=== PATIENT | male | born 1975 | race Hispanic/Latino ===

== ENCOUNTER 2017-08-25 02:59 | Emergency (ER) | payer MEDICAID ==
[2017-08-25 02:59] VITALS: BMI 21.2
--- NOTE | 2017-08-25 03:49 | C.PDOC ---
History Of Present Illness pt states that he wants detox from alcohol and heroin. Pt was told that there are no detox beds available and was given the phone numbers and contact numbers for the detox centers in the area. Pt denies any suicidal or homicidal ideation Time Seen by Provider: 08/25/17 03:46 Chief Complaint (Nursing): Substance Abuse History Per: Patient History/Exam Limitations: no limitations Onset/Duration Of Symptoms: Days Current Symptoms Are (Timing): Still Present Suicide/Self Injury Attempted (Context): None Modifying Factor(s): Alcohol Severity: None Associated Symptoms: Anger. denies: Depression Involuntary Hold By: None Recent travel outside of the [place]: No Additional History Per: Patient Past Medical History Reviewed: Historical Data, Nursing Documentation, Vital Signs Vital Signs: Last Vital Signs Temp 98.4 F 08/25/17 03:14 Pulse 107 H 08/25/17 03:14 Resp 20 08/25/17 03:14 BP 115/84 08/25/17 03:14 Pulse Ox 100 08/25/17 03:52 - Medical History PMH: Anxiety, Arthritis, Back Problems (chronic pain, s/p fall in 2010), Bipolar Disorder, Depression, Seizures (2 in his lifetime) Denies: Diabetes, Hepatitis, HIV, HTN, Hyperthyroidism, Hypothyroidism, Chronic Kidney Disease, Sexually Transmitted Disease - [facility] Procedures GROUP PSYCHOTHERAPY (07/22/16) INDIVIDUAL PSYCHOTHERAPY, COGNITIVE-BEHAVIORAL (05/31/16) MEDICATION MANAGEMENT (08/20/16) Family History: States: Diabetes (paternal), Hypertension (paternal) - Social History Hx Alcohol Use: Yes Hx Substance Use: Yes - Immunization History Hx Tetanus Toxoid Vaccination: No Hx Influenza Vaccination: No Hx Pneumococcal Vaccination: No Review Of Systems Constitutional: Negative for: Fever Cardiovascular: Negative for: Chest Pain Respiratory: Negative for: Shortness of Breath Gastrointestinal: Negative for: Abdominal Pain Genitourinary: Negative for: Dysuria Musculoskeletal: Negative for: Back Pain Skin: Negative for: Rash Neurological: Negative for: Weakness Psych: Negative for: Suicidal ideation Physical Exam - Physical Exam Appears: Non-toxic Skin: Warm, Dry Neck: Supple Chest: Symmetrical Cardiovascular: Rhythm Regular Respiratory: No Rales Gastrointestinal/Abdominal: Soft, No Tenderness Extremity: Bilateral: Atraumatic Gait: Steady ED Course And Treatment O2 Sat by Pulse Oximetry: 100 Pulse Ox Interpretation: Normal Reevaluation Time: 05:13 Reassessment Condition: Improved Disposition Counseled Patient/Family Regarding: Studies Performed, Diagnosis, Need For Followup - Disposition Referrals: [facility] [Outside] Disposition: HOME/ ROUTINE Disposition Time: 03:47 Condition: FAIR Instructions: Alcohol Abuse and Alcoholism (DC) Forms: [employer] (Welsh) - Clinical Impression Clinical Impression: Alcohol abuse, Polysubstance abuse
[2017-08-25 05:32] VITALS: TEMP 98.5
[2017-08-25 06:07] LABS: SQUAMOUS EPITHIAL < 1 /hpf (0-5); URINE BILIRUBIN NEGATIVE (NEGATIVE); URINE BLOOD 1+ (NEGATIVE); URINE CLARITY Clear (Clear); URINE COLOR Yellow (YELLOW); URINE GLUCOSE (UA) NORMAL (Normal); URINE LEUKOCYTE ESTERASE NEG Leu/uL (Negative); URINE PROTEIN NEGATIVE (NEGATIVE); URINE UROBILINOGEN NORMAL mg/dL (0.2-1.0)
[2017-08-25 06:20] LABS: BARBITURATES, UR NEGATIVE (NEGATIVE); BENZODIAZEPINES, UR NEGATIVE (NEGATIVE); OPIATES, UR NEGATIVE (NEGATIVE); PHENCYCLIDINE, UR NEGATIVE (NEGATIVE)
[2017-08-25 06:22] LABS: BASO % 0.4 % (0.0-2.0); EOS # 0.1 K/uL (0.0-0.7); EOS % 0.8 % (0.0-4.0); HEMOGLOBIN 13.3 g/dL (12.0-18.0); LYMPH # 2.3 K/uL (1.0-4.3); LYMPH % 21.5 % (20.0-40.0); MEAN CORPUSCULAR HEMOGLOBIN 27.7 pg (27.0-31.0); MEAN CORPUSCULAR HGB CONC 34.2 g/dL (33.0-37.0); MONO # 0.4 K/uL (0.0-0.8); MONO % 3.8 % (0.0-10.0); NEUT # 7.9 K/uL (1.8-7.0); NEUT % 73.5 % (50.0-75.0); RBC 4.81 Mil/uL (4.40-5.90); RED CELL DISTRIBUTION WIDTH 14.8 % (11.5-14.5); WHITE BLOOD COUNT 10.8 K/uL (4.8-10.8)
[2017-08-25 06:38] LABS: ALB/GLOB RATIO 1.4 (1.0-2.1); ALBUMIN 4.4 g/dL (3.5-5.0); ALT/SGPT 16 U/L (21-72); AST/SGOT 19 U/L (17-59); BLOOD UREA NITROGEN 11 mg/dL (9-20); CALCIUM 8.8 mg/dl (8.6-10.4); GFR AFRICAN-AMERICAN > 60; GFR NON-AFRICAN AMERICAN > 60
[2017-08-25 07:40] VITALS: BP 126/76; PULSE 109; RESP 18; O2SAT 98
== END 2017-08-25 08:05 | disposition home or self-care (01) ==
LOC: C.ER 02:59
DX: F10.10 Alcohol abuse, uncomplicated (principal); F19.10 Other psychoactive substance abuse, uncomplicated; Y90.1 Blood alcohol level of 20-39 mg/100 ml

== ENCOUNTER 2017-10-16 12:49 | Inpatient (IN) | payer MEDICAID ==
[2017-10-16 12:49] VITALS: BMI 21.2
[2017-10-16 13:32] LABS: BASO % 0.2 % (0.0-2.0); HEMOGLOBIN 14.7 g/dL (12.0-18.0); LYMPH # 1.5 K/uL (1.0-4.3); LYMPH % 8.3 % (20.0-40.0); MEAN CELL VOLUME 79.7 fL (80.0-94.0); MEAN CORPUSCULAR HEMOGLOBIN 27.7 pg (27.0-31.0); MEAN CORPUSCULAR HGB CONC 34.8 g/dL (33.0-37.0); MEAN PLATELET VOLUME 7.8 fL (7.2-11.7); MONO # 0.8 K/uL (0.0-0.8); MONO % 4.5 % (0.0-10.0); NEUT # 15.8 K/uL (1.8-7.0); PLATELET COUNT 379 K/uL (130-400); RBC 5.32 Mil/uL (4.40-5.90); RED CELL DISTRIBUTION WIDTH 15.5 % (11.5-14.5)
[2017-10-16 13:33] LABS: WHITE BLOOD COUNT 18.2 K/uL (4.8-10.8)
[2017-10-16 13:38] LABS: SQUAMOUS EPITHIAL < 1 /hpf (0-5); URINE BILIRUBIN NEGATIVE (NEGATIVE); URINE BLOOD NEGATIVE (NEGATIVE); URINE CLARITY Hazy (Clear); URINE COLOR Amber (YELLOW); URINE GLUCOSE (UA) NORMAL (Normal); URINE LEUKOCYTE ESTERASE NEG Leu/uL (Negative); URINE PROTEIN 1+ mg/dL (NEGATIVE)
[2017-10-16 13:50] LABS: BANDS 1 % (0-2); LYMPHOCYTE 10 % (20-40); MONOCYTE 6 % (0-10); NEUTROPHIL 83 % (50-75); TOTAL CELLS COUNTED 100
[2017-10-16 13:51] LABS: ANISOCYTOSIS SLIGHT; PLATELET ESTIMATE NORMAL (NORMAL)
[2017-10-16 13:52] LABS: ALB/GLOB RATIO 1.2 (1.0-2.1); ALBUMIN 4.7 g/dL (3.5-5.0); ALT/SGPT 26 U/L (21-72); AST/SGOT 28 U/L (17-59); BARBITURATES, UR NEGATIVE (NEGATIVE); BLOOD UREA NITROGEN 18 mg/dL (9-20); GFR AFRICAN-AMERICAN > 60; GFR NON-AFRICAN AMERICAN > 60; OPIATES, UR NEGATIVE (NEGATIVE); PHENCYCLIDINE, UR NEGATIVE (NEGATIVE)
[2017-10-16 14:15] LABS: BENZODIAZEPINES, UR POSITIVE (NEGATIVE)
--- NOTE | 2017-10-16 14:43 | C.PDOC ---
History Of Present Illness 42-year-old male, PMHx includes psychiatric illness and alcohol abuse, presents to the emergency department with complaints of suicidal ideation since last night. Patient was recently in an inpatient psychiatric unit at [facility]. No other complaints at this time. Time Seen by Provider: 10/16/17 13:17 Chief Complaint (Nursing): Psychiatric Evaluation History Per: Patient History/Exam Limitations: no limitations Past Medical History Reviewed: Historical Data, Nursing Documentation, Vital Signs Vital Signs: Last Vital Signs Temp 98.7 F 10/16/17 15:04 Pulse 106 H 10/16/17 15:04 Resp 18 10/16/17 15:04 BP 124/76 10/16/17 15:04 Pulse Ox 97 10/16/17 15:04 - Medical History PMH: Anxiety, Arthritis, Back Problems (chronic pain, s/p fall in 2010), Bipolar Disorder, Depression, Seizures (2 in his lifetime) - [facility] Procedures GROUP PSYCHOTHERAPY (07/22/16) INDIVIDUAL PSYCHOTHERAPY, COGNITIVE-BEHAVIORAL (05/31/16) MEDICATION MANAGEMENT (08/20/16) Family History: States: Diabetes (paternal), Hypertension (paternal) - Social History Hx Alcohol Use: Yes Hx Substance Use: Yes - Immunization History Hx Tetanus Toxoid Vaccination: No Hx Influenza Vaccination: No Hx Pneumococcal Vaccination: No Review Of Systems Constitutional: Negative for: Fever Cardiovascular: Negative for: Chest Pain Respiratory: Negative for: Shortness of Breath Gastrointestinal: Negative for: Vomiting, Abdominal Pain Neurological: Negative for: Headache Psych: Positive for: Suicidal ideation. Negative for: Withdrawal Physical Exam - Physical Exam Appears: Non-toxic, No Acute Distress, Other (appearing) Skin: Normal Color, Warm, Dry, No Rash Head: Atraumatic, Normacephalic Eye(s): bilateral: Other (dilated pupils) Nose: Normal Oral Mucosa: Moist Lips: Normal Appearing Neck: Normal ROM Cardiovascular: Rhythm Regular, No Murmur Respiratory: Normal Breath Sounds, No Accessory Muscle Use Gastrointestinal/Abdominal: Soft, No Tenderness Extremity: Normal ROM, No Deformity, No Swelling Neurological/Psych: Oriented x3, Normal Speech ED Course And Treatment - Laboratory Results Result Diagrams: 10/16/17 13:20 10/16/17 13:20 Lab Interpretation: Abnormal (benzo +) O2 Sat by Pulse Oximetry: 99 (RA) Pulse Ox Interpretation: Normal Reevaluation Time: 14:44 Reassessment Condition: Improved Medical Decision Making Medical Decision Making: bipolar, alcohol abuse Disposition Doctor Will See Patient In The: Hospital Counseled Patient/Family Regarding: Studies Performed, Diagnosis - Disposition Disposition: HOSPITALIZED Disposition Time: 14:44 Condition: GOOD - Clinical Impression Clinical Impression: Bipolar disorder, Alcohol abuse - Scribe Statement The provider has reviewed the documentation as recorded by the Scribe (Louis Howell) All medical record entries made by the Scribe were at my direction and personally dictated by me. I have reviewed the chart and agree that the record accurately reflects my personal performance of the history, physical exam, medical decision making, and the department course for this patient. I have also personally directed, reviewed, and agree with the discharge instructions and disposition.
[2017-10-16 16:16] VITALS: O2SAT 99
--- NOTE | 2017-10-16 16:25 | PCM.BM ---
<BlayneBelkys - Last Filed: 10/16/17 16:24> Treatment assets and liabiliti Patient Assests: cooperative, ADL independent, negotiates basic needs, cognitively intact Patient Liabilities: live alone - Milieu Protocol Maintain good personal hygiene: daily Encourage regular showers, daily Remind patient to perform daily oral care, daily Assist patient to perform ADL's Maintain personal safety: every shift Educate patient to report safety concerns to staff, every shift Monitor environment for contraband/sharps Medication safety: Monitor for expected outcome, potential side effects: every shift, Assess barriers to learning: every shift, Assess readiness for medication education: every shift <Lexx Lin - Last Filed: 10/19/17 11:39> - Diagnosis (1) Bipolar disorder Status: Acute Interventions: 10/19/17 11:39 * Assess/adjust medications daily and /or as needed * See patient on an individual basis 7x/week to assess level of manic behaviors and stability * Discuss risks, benefits, side effects and alternatives of medications * <Haley Diop - Last Filed: 10/19/17 16:36> Family Contact Family involvement: Patient does not wish Family/SO involvement Family contact: Patient declines to allow family contact at present - Goals for Treatment Patient goals for treatment: "I want to go to a rehab program." Discharge/Continuing Care - Education Needs Education Needs: Patient Medication, Patient Diagnosis/Disease Process, Patient Coping Skills - Discharge Discharge Criteria: Free of Suicidal thoughts, Normal sleep pattern, Ability to care for self, No longer exhibiting s/s of withdrawal, Reduction of target symptoms Discharge to:: Substance Abuse Rehab, Other - Treatment Team Participation Discussed with Family/SO: No Was Patient/Family/SO present at Treatment Team Meeting: Yes
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
[2017-10-17] MEDS: Divalproex 500 mg DR Tab PO SCH (17:11)
[2017-10-18] MEDS: Divalproex 500 mg DR Tab PO SCH ×2 (09:36→17:17)
--- NOTE | 2017-10-18 16:03 | PCM.PYCHPN ---
Psychiatric Progress Note - Psychiatric Progress Note Patient seen today, length of contact: 16 min Patient Chief Complaint: feeling down Problems Identified/Issues Discussed: Patient seen and evaluated, chart reviewed and discussed with the nurse. Patient reports irritability and agitation. He remained isolated and withdrawn. He reports depressed mood and poor sleep and racing thoughts. However he denies any auditory or visual hallucinations. He is taking medications and denies any side effects Symptoms are improving but he needs more time for stabilization. Supportive therapy and psychoeducation were given. Medication Change: Yes Medical Record Reviewed: Yes Mental Status Examination - Cognitive Function Orientation: Person, Place, Situation, Time Memory: Intact Attention: WNL Concentration: Poor Association: WNL Fund of Knowledge: Poor - Mood Mood: Depressed, Anxious - Affect Affect: Constricted, Depressed - Speech Speech: Soft - Formal Thought Process Formal Thought Process: No Impairment - Suicidal Ideation Suicidal Ideation: No - Homicidal Ideation Homicidal Ideation: No Goal/Treatment Plan - Goal/Treatment Plan Need for Continued Stay: Severe depression anxiety, Severe functional impairment Progress Toward Problem(s) and Goals/Treatment Plan: Bipolar depressed severe without psychotic features CBT Psychoeducation Supportive therapy, group therapy, individual therapy Depakote 500 mg by mouth twice a day Trazodone 50 mg by mouth daily at bedtime Seroquel 100 mg PO QHS Gabapentin 100 mg po TID Buspar 10 mg PO BID Alcohol use disorder severe CBT Psychoeducation Supportive therapy, individual therapy Use [place] for abstinence ativan 1 mg by mouth every 6 hours prn - Smoking Cessation Smoking Cessation Initiated: No
[2017-10-19] MEDS: Divalproex 500 mg DR Tab PO SCH ×2 (09:05→17:43)
[2017-10-19] MEDS ORDERED: Pneumococcal 23-Valent Vaccine IM ONE (10:00)
[2017-10-20] MEDS: Divalproex 500 mg DR Tab PO SCH ×2 (09:14→17:08)
--- NOTE | 2017-10-20 10:21 | PCM.PYCHPN ---
Psychiatric Progress Note - Psychiatric Progress Note Patient seen today, length of contact: 16 min Patient Chief Complaint: feeling down Problems Identified/Issues Discussed: Patient seen and evaluated, chart reviewed and discussed with the nurse. Patient reports irritability and agitation. He remained isolated and withdrawn. He reports depressed mood and poor sleep and racing thoughts. However he denies any auditory or visual hallucinations. He is taking medications and denies any side effects Symptoms are improving but he needs more time for stabilization. Supportive therapy and psychoeducation were given. Medication Change: Yes Medical Record Reviewed: Yes Mental Status Examination - Cognitive Function Orientation: Person, Place, Situation, Time Memory: Intact Attention: WNL Concentration: Poor Association: WNL Fund of Knowledge: Poor - Mood Mood: Depressed, Anxious - Affect Affect: Constricted, Depressed - Speech Speech: Soft - Formal Thought Process Formal Thought Process: No Impairment - Suicidal Ideation Suicidal Ideation: No - Homicidal Ideation Homicidal Ideation: No Goal/Treatment Plan - Goal/Treatment Plan Need for Continued Stay: Severe depression anxiety, Severe functional impairment Progress Toward Problem(s) and Goals/Treatment Plan: Bipolar depressed severe without psychotic features CBT Psychoeducation Supportive therapy, group therapy, individual therapy Depakote 500 mg by mouth twice a day Trazodone 50 mg by mouth daily at bedtime Seroquel 100 mg PO QHS Gabapentin 100 mg po TID Buspar 10 mg PO BID Alcohol use disorder severe CBT Psychoeducation Supportive therapy, individual therapy Use [place] for abstinence ativan 1 mg by mouth every 6 hours prn
--- NOTE | 2017-10-20 10:22 | PCM.PYCHPN ---
Psychiatric Progress Note - Psychiatric Progress Note Patient seen today, length of contact: 16 min Patient Chief Complaint: feeling down Problems Identified/Issues Discussed: Patient is seen and evaluated, chart reviewed, and discussed with nurse. Patient states his mood is about the same as yesterday, slightly depressed. Patient states he is sleeping well and eating well. Patient stays in his room often and remains withdrawn. Patient does not attend group activities. He only leaves the room when he needs medications or to eat food. Patient denies suicidal ideations. Patient denies auditory, tactile, or visual hallucinations. He is taking medications and denies any side effects. Symptoms are improving overall. Supportive therapy and psychoeducation were given. After care discussed. . Medication Change: Yes Medical Record Reviewed: Yes Mental Status Examination - Cognitive Function Orientation: Person, Place, Situation, Time Memory: Intact Attention: WNL Concentration: Poor Association: WNL Fund of Knowledge: Poor - Mood Mood: Depressed, Anxious - Affect Affect: Constricted, Depressed - Speech Speech: Soft - Formal Thought Process Formal Thought Process: No Impairment - Suicidal Ideation Suicidal Ideation: No - Homicidal Ideation Homicidal Ideation: No Goal/Treatment Plan - Goal/Treatment Plan Need for Continued Stay: Severe depression anxiety, Severe functional impairment Progress Toward Problem(s) and Goals/Treatment Plan: Bipolar depressed severe without psychotic features CBT Psychoeducation Supportive therapy, group therapy, individual therapy Depakote 500 mg by mouth twice a day Trazodone 50 mg by mouth daily at bedtime Seroquel 100 mg PO QHS Gabapentin 100 mg po TID Buspar 10 mg PO BID Alcohol use disorder severe CBT Psychoeducation Supportive therapy, individual therapy Use [place] for abstinence ativan 1 mg by mouth every 6 hours prn
[2017-10-21] MEDS: Divalproex 500 mg DR Tab PO SCH ×2 (09:40→21:00)
--- NOTE | 2017-10-21 14:37 | PCM.PYCHPN ---
Psychiatric Progress Note - Psychiatric Progress Note Patient seen today, length of contact: 16 min Patient Chief Complaint: I am still feeling down and depressed Problems Identified/Issues Discussed: Patient is seen and evaluated, chart reviewed, and discussed with nurse. Patient states his mood is about the same as yesterday, slightly depressed. Patient states he is sleeping well and eating well. Patient stays in his room often and remains withdrawn. Patient does not attend group activities. He only leaves the room when he needs medications or to eat food. Patient denies suicidal ideations. Patient denies auditory, tactile, or visual hallucinations. Patient sometimes gets irritable when asked to come to group activities. He prefers to be alone. He is taking medications and denies any side effects. Symptoms are improving overall but needs more time to stabilize. Supportive therapy and psychoeducation were given. After care discussed was discussed with the patient and he is interested in going to rehab so he continues to work with the medical social worker. . Medication Change: Yes Medical Record Reviewed: Yes Mental Status Examination - Cognitive Function Orientation: Person, Place, Situation, Time Memory: Intact Attention: WNL Concentration: Poor Association: WNL Fund of Knowledge: Poor - Mood Mood: Depressed, Anxious - Affect Affect: Constricted, Depressed - Speech Speech: Soft - Formal Thought Process Formal Thought Process: No Impairment - Suicidal Ideation Suicidal Ideation: No - Homicidal Ideation Homicidal Ideation: No Goal/Treatment Plan - Goal/Treatment Plan Need for Continued Stay: Severe depression anxiety, Severe functional impairment Progress Toward Problem(s) and Goals/Treatment Plan: Bipolar depressed severe without psychotic features CBT Psychoeducation Supportive therapy, group therapy, individual therapy Depakote 500 mg by mouth twice a day Trazodone 50 mg by mouth daily at bedtime Seroquel 100 mg PO QHS Gabapentin 100 mg po TID Buspar 10 mg PO BID Alcohol use disorder severe CBT Psychoeducation Supportive therapy, individual therapy Use [place] for abstinence ativan 1 mg by mouth every 6 hours prn
[2017-10-22] MEDS: Divalproex 500 mg DR Tab PO SCH (21:16)
[2017-10-23 06:35] VITALS: BP 100/65; PULSE 74; RESP 20; TEMP 98
--- NOTE | 2017-10-23 09:59 | PCM.PYCHPN ---
Psychiatric Progress Note - Psychiatric Progress Note Patient seen today, length of contact: 16 min Patient Chief Complaint: I am still feeling down and depressed Problems Identified/Issues Discussed: Patient is seen and evaluated, chart reviewed, and discussed with nurse. Patient states his mood is about the same as yesterday, slightly depressed. Patient states he is sleeping well and eating well. Patient stays in his room often and remains withdrawn. Patient does not attend group activities. He only leaves the room when he needs medications or to eat food. Patient denies suicidal ideations. Patient denies auditory, tactile, or visual hallucinations. Patient sometimes gets irritable when asked to come to group activities. He prefers to be alone. He is taking medications and denies any side effects. Symptoms are improving overall but needs more time to stabilize. Supportive therapy and psychoeducation were given. After care discussed was discussed with the patient and he is interested in going to rehab so he continues to work with the mental health social worker. . Medication Change: Yes Medical Record Reviewed: Yes Mental Status Examination - Cognitive Function Orientation: Person, Place, Situation, Time Memory: Intact Attention: WNL Concentration: Poor Association: WNL Fund of Knowledge: Poor - Mood Mood: Depressed, Anxious - Affect Affect: Constricted, Depressed - Speech Speech: Soft - Formal Thought Process Formal Thought Process: No Impairment - Suicidal Ideation Suicidal Ideation: No - Homicidal Ideation Homicidal Ideation: No Goal/Treatment Plan - Goal/Treatment Plan Need for Continued Stay: Severe depression anxiety, Severe functional impairment Progress Toward Problem(s) and Goals/Treatment Plan: Bipolar depressed severe without psychotic features CBT Psychoeducation Supportive therapy, group therapy, individual therapy Depakote 500 mg by mouth twice a day Trazodone 50 mg by mouth daily at bedtime Seroquel 100 mg PO QHS Gabapentin 100 mg po TID Buspar 10 mg PO BID Alcohol use disorder severe CBT Psychoeducation Supportive therapy, individual therapy Use [place] for abstinence ativan 1 mg by mouth every 6 hours prn
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
[2017-10-23] MEDS ORDERED: Divalproex 500 mg DR Tab PO SCH (18:00)
== END 2017-10-23 13:48 | disposition home or self-care (01) | DRG 430 ==
LOC: C.ER 12:49 → C.9E 14:40 → C.5E 15:38
PROVIDERS: ADMIT Psychiatry & Neurology Psychiatry; ATTEND Psychiatry & Neurology Psychiatry
PROC: GZHZZZZ Group Psychotherapy (ICD-10-PCS; principal; 2017-10-16)
PROC: GZ58ZZZ Individual Psychotherapy, Cognitive-Behavioral (ICD-10-PCS; 2017-10-16)
PROC: GZ56ZZZ Individual Psychotherapy, Supportive (ICD-10-PCS; 2017-10-16)
PROC: HZ52ZZZ Individual Psychotherapy for Substance Abuse Treatment, Cognitive-Behavioral (ICD-10-PCS; 2017-10-16)
PROC: HZ59ZZZ Individual Psychotherapy for Substance Abuse Treatment, Supportive (ICD-10-PCS; 2017-10-16)
PROC: HZ56ZZZ Individual Psychotherapy for Substance Abuse Treatment, Psychoeducation (ICD-10-PCS; 2017-10-16)
PROC: HZ42ZZZ Group Counseling for Substance Abuse Treatment, Cognitive-Behavioral (ICD-10-PCS; 2017-10-16)
PROC: HZ46ZZZ Group Counseling for Substance Abuse Treatment, Psychoeducation (ICD-10-PCS; 2017-10-16)
DX: F31.4 Bipolar disorder, current episode depressed, severe, without psychotic features (principal); F10.20 Alcohol dependence, uncomplicated; Y90.0 Blood alcohol level of less than 20 mg/100 ml; R45.851 Suicidal ideations; Z62.810 Personal history of physical and sexual abuse in childhood; Z63.8 Other specified problems related to primary support group; F41.8 Other specified anxiety disorders